=== PATIENT | female | born 1990 | race Caucasian/White ===

== ENCOUNTER → 2017-10-19 | Outpatient (CLI) | payer BC ==
[~2017-10-19] MED LIST: PRENTAB26 PO; TYL325X PO
== END | disposition home or self-care (01) ==
LOC: C.PAPS 07:51
PROVIDERS: ATTEND Obstetrics & Gynecology
DX: Z01.419 Encounter for gynecological examination (general) (routine) without abnormal findings (principal)

== ENCOUNTER 2019-10-16 15:58 | Inpatient (IN) ==
[2019-10-16] MEDS ORDERED: OXYTOCIN 30 UNITS/500 ML BAG IV PRN ×2 (16:56→22:32)
[2019-10-16] MEDS: LACTATED RINGER'S 1,000 ML IV PRN ×2 (17:14→18:11)
[2019-10-16] MEDS ORDERED: ePHEDrine sulfate 50 MG/ML AMP ONE (17:41)
[2019-10-16] MEDS ORDERED: fentaNYL citrate 100 MCG/2 ML VIAL ONE (17:41)
[2019-10-16] MEDS ORDERED: BUPIVACAINE 0.25% 30 ML VIAL ONE (17:42)
[2019-10-16] MEDS ORDERED: fentaNYL 2MCG/ML ROPIV 1.25MG/ML 100 ML BAG EPI ONE (17:42)
[2019-10-16 18:17] LABS: Hematocrit (blood only) 27.7 % (37-47); Mean Corpuscular Hemoglobin 25.9 pg (25-34); Mean Corpuscular Hgb Conc 32.5 g/dL (32-36); Mean Corpuscular Volume 79.6 fL (80-100); Mean Platelet Volume 12.9 fL (7.4-10.4); Platelet Count 188 K/uL (130-400); RDW Coefficient of Variation 15.4 % (11.5-14.5); RDW Standard Deviation 44.7 fL (36.4-46.3); Red Blood Count 3.48 M/uL (4.2-5.4); White Blood Count 13.67 K/uL (4.8-10.8)
[2019-10-16 18:18] LABS: Platelet Estimate Normal (Normal)
--- NOTE | 2019-10-16 18:27 | History & Physical Report ---
Date of Service October 16, 2019 Assessment & Plan (1) Normal labor: IUP in active labor with SPROM patient would like epidural analgesia anticipate vaginal Present on Admission?: Yes History of Present Illness Primary Care Provider: NO PCP Patient is a 29 yo white female EDC 10/24/19 who presents with SPROM at 1500 for copious clear fluid. contractions then started spontaneously/ has been uncomplicated. GBS- negative Blood type is O negative. Allergies Allergy/AdvReac Type Severity Reaction Status Date / Time No Known Drug Allergies Allergy Unknown n/a Verified 10/14/19 11:15 Home Medications Home Medications Medication Instructions Recorded Confirmed Type vit-iron fum-folic ac 1 tab PO DAILY 10/16/19 10/16/19 History [ Vitamin] Patient History Social History (Updated 05/09/19 @ 08:03 by Christa Davis MD) Preferred Language: Filipino Beliefs That Will Affect Care: None marital status: Current Living Situation: Spouse Other Information That Helps Us Care for You: No Feels Safe at Home: Yes Safety Concerns: Feels Safe At This Time Smoking Status: Never smoker Hx Alcohol Use: No Hx Substance Use: No Review of Systems All systems reviewed & are unremarkable except as noted in HPI & below Physical Exam Constitutional: WD/WN, vitals as above Respiratory: normal respiratory effort, lungs clear to auscultation Cardiovascular: RRR, no murmur, no edema Gastrointestinal (Abdomen): normal bowel sounds, soft, nontender, no hepatosplenomegaly Psychiatric: A+Ox3, euthymic affect Genitourinary: Manual OB Exam: + cervical dilation 4 cm, + cervical effacement 60%, + station -2 and + amniotic fluid clear OB Exam Monitor Tracing: + external FHT monitor used, + external uterine monitor used, + category II and + normal FHT variability mild to moderate variables with contractions. Results & Data Vital Signs (Past 12 Hours) Vital Signs Temp Pulse Resp BP 10/16/19 18:06 98.2 F 88 20 126/69 10/16/19 16:15 97.7 F 20 10/16/19 16:02 68 154/82 H Code Status & VTE Plan VTE Prophylaxis Plan VTE Prophylaxis will be ordered: No
[2019-10-16] MEDS ORDERED: NALOXONE HCL 0.4 MG/1 ML VIAL/CARP IV PRN (18:46)
[2019-10-16] MEDS ORDERED: fentaNYL 2MCG/ML ROPIV 1.25MG/ML 100 ML BAG EPI PRN (18:46)
[2019-10-16] MEDS ORDERED: NALOXONE HCL 1 MG in SODIUM CHLORIDE 0.9% 1000ML 1,000 ML IV PRN (18:46)
[2019-10-16] MEDS ORDERED: ONDANSETRON INJ 2 MG/ML 2 ML VIAL IV PRN (18:46)
[2019-10-16] MEDS ORDERED: ePHEDrine sulfate 50 MG/ML AMP IV PRN (18:46)
[2019-10-16] MEDS ORDERED: DiphenhydrAMINE HCL 50 MG/ML VIAL IV PRN (18:46)
[2019-10-16] MEDS ORDERED: NALBUPHINE HCL INJ 10 MG/ML AMP IV PRN (18:46)
--- NOTE | 2019-10-16 18:46 | Anesthesiology Consultation ---
Date of Service October 16, 2019 Assessment & Plan (1) Encounter for pre-operative examination: Chart Review Chart Review: Patient NOT seen in Pre Admission Testing and Acceptable Risk for Labor Epidural Consults Requested none ASA ASA2 Proposed Anesthesia Anesthesia Type: CSE Risk / Benefits Reviewed With: PT / POA / Parent / Guardian, Accepts Plan and Informed Consent Obtained History Height/Weight Height: 5 ft Weight: 65.317 kg Allergies Allergy/AdvReac Type Severity Reaction Status Date / Time No Known Drug Allergies Allergy Unknown n/a Verified 10/14/19 11:15 Medications Home Medications Medication Instructions Recorded Confirmed Last Taken vit-iron fum-folic ac 1 tab PO DAILY 10/16/19 10/16/19 10/16/19 08:00 [ Vitamin] Active Medications Generic Name Dose Route Start Last Admin Trade Name Freq PRN Reason Stop Dose Admin Lactated Ringer's 1,000 mls @ 125 mls/hr 10/16/19 16:56 10/16/19 18:11 Lr IV 10/18/19 16:55 125 mls/hr .Q8H PRN Administration L&D Protocol Protocol NPO Date Last Intake of Fluids: 10/16/19 Time Last Intake of Fluids: 17:00 Date Last Intake of Solids: 10/16/19 Time Last Intake of Solids: 08:00 Past Medical History Medical History History of breast pain (Resolved) History of varicella (Resolved) Exercise / Class Metabolic Activity II 4-5 Yardwork/Stairs/Walk up hill Past Family History Family History Mother Grandmother (Maternal) Breast cancer Past Surgical History Surgical History S/P wisdom tooth extraction Past Anesthesia History No Hx of Anesthesia Complications and No Family Hx of Anesthesia Complications History of PONV No Hx of PONV and No Hx of Motion Sickness Social History Smoking Status: Never smoker Hx Alcohol Use: No Hx Substance Use: No substance use type: does not use Physical Exam Vital Signs Last Vital Signs Temp 36.8 C 10/16/19 18:06 Pulse 95 H 10/16/19 18:39 Resp 20 10/16/19 18:06 BP 109/57 L 10/16/19 18:39 Pulse Ox 100 10/16/19 18:37 ENMT Mouth: no dentition abnormality Thyromental Distance: > or= 3.5 Finger Breadths Mallampati Class: II Neck normal visual inspection Respiratory normal respiratory effort Auscultation: lungs clear to auscultation bilaterally Cardiovascular Rate/Rhythm: regular rate and regular rhythm Psychiatric Orientation: alert Testing Laboratory Results 10/16/19 17:36
[2019-10-16] MEDS ORDERED: BENZOCAINE 20% AER SPR 82.5 GM CAN EXT PRN (22:32)
[2019-10-16] MEDS ORDERED: IBUPROFEN 600 MG TAB PO PRN (22:32)
[2019-10-16] MEDS ORDERED: ACETAMINOPHEN 325 MG TAB PO PRN (22:32)
[2019-10-16] MEDS ORDERED: HYDROCORTISONE ACETATE 25 MG SUPP PR PRN (22:32)
[2019-10-16] MEDS ORDERED: bisacodyL 10 MG SUPP PR PRN (22:32)
[2019-10-16] MEDS ORDERED: OXYCODONE/ACETAMINOPHEN 5mg/325mg TAB PO PRN (22:32)
[2019-10-16] MEDS ORDERED: SUPERCREAM 0.870% 15 GM JAR EXT PRN (22:32)
[2019-10-16] MEDS ORDERED: DIPHTHERIA/TETANUS/PERTUSSIS 0.5 ML SYR/VIAL IM ONE (22:32)
--- NOTE | 2019-10-17 00:42 | Delivery Summary ---
DATE OF OPERATION: 10/16/2019 The patient is a 29-year-old 3, para 2-0-0-2, white female who presented with spontaneous rupture of membranes for clear fluid at approximately 1500 hours today. She presented in active labor. She received effective epidural analgesia. She began pushing when the head was at +3 station. She pushed effectively over intact perineum for delivery of a viable female . The rest of infant delivered easily and was placed on the mother's abdomen for further attention and drying. There was vigorous crying and the infant was moving all 4 limbs. After 1 minute, the cord was clamped and cut. After cord blood was obtained, the placenta was expressed intact with a 3-vessel cord. There were no perineal lacerations, but a very superficial left labial abrasion present which was not bleeding and not repaired. BLOOD LOSS: 100 mL. Mother and infant were doing well post-delivery. I attest to the content of the Intraoperative Record and any orders documented therein. Any exception s are noted below.
--- NOTE | 2019-10-17 06:25 | Obstetrical Progress Note ---
Date of Service <Amaya Eduardo DO - Last Filed: 10/17/19 07:01> October 17, 2019 Assessment & Plan <Amaya Eduardo DO - Last Filed: 10/17/19 07:01> (1) Encounter for care and examination after delivery: 29 yo F PPD #1 following term vaginal delivery, doing well and without complaints this morning. - PPD #1, however delivered late last night. - Feels well, ambulating well, voiding well. - Will continue routine care. - Following d/c will have f/u in 6 weeks. Subjective <Amaya Eduardo DO - Last Filed: 10/17/19 07:01> Lali is a 29 yo female ; PPD # 1 following term vaginal delivery; doing well this AM; no abdominal cramping/pain; voiding well; no food since delivery, able to ambulate some within the room. Review of Systems Constitutional: denies fever, chills, sweats, headache Respiratory: denies SOB, difficulty breathing Cardiac: denies CP, chest palpitations, chest pressure Breast: denies breast pain : denies dysuria Physical Exam <Amaya Eduardo DO - Last Filed: 10/17/19 07:01> General: patient is alert and oriented, in NAD Cardiac: +S1/S2, no murmurs rubs or gallops Respiratory: lungs CTA b/l, anteriorly and posteriorly, no wheezes rales or rhonchi, no increased work of breathing, symmetric chest rise, no respiratory distress Abdomen: soft, NT, +bowel sounds Uterus: uterine fundus firm, palpable below the level of the umbilicus Lower Extremities: no LE edema or swelling, no deep calf pain, Rohit's sign negative b/l Results & Data <Amaya Eduardo DO - Last Filed: 10/17/19 07:01> Vital Signs (Past 12 Hours) Vital Signs Temp Pulse Pulse Resp BP BP Pulse Ox 10/17/19 04:30 37.2 C 91 H 16 117/70 94 10/17/19 01:00 37.2 C 94 H 18 128/81 97 10/17/19 00:32 100 H 126/76 10/17/19 00:30 37.0 C 100 H 18 126/76 10/17/19 00:28 100 H 128/73 10/17/19 00:13 117 H 130/60 10/17/19 00:02 105 H 129/58 L 10/17/19 00:00 105 H 18 129/58 L 10/16/19 23:52 103 H 118/63 10/16/19 23:42 101 H 124/64 10/16/19 23:32 100 H 130/67 10/16/19 23:30 100 H 130/67 10/16/19 23:15 109 H 18 115/71 10/16/19 23:12 109 H 115/71 10/16/19 23:02 90 120/60 10/16/19 23:00 18 10/16/19 22:52 99 H 120/64 10/16/19 22:45 18 10/16/19 22:43 105 H 117/67 10/16/19 22:32 37.2 C 116 H 18 114/72 10/16/19 22:27 117 H 99 10/16/19 22:26 121 H 128/59 L 10/16/19 22:22 122 H 100 10/16/19 22:17 124 H 99 10/16/19 22:12 114 H 100 10/16/19 22:11 115 H 123/78 10/16/19 22:07 114 H 100 10/16/19 22:02 131 H 98 10/16/19 22:01 18 10/16/19 21:57 118 H 98 10/16/19 21:56 123 H 105/55 L 10/16/19 21:52 119 H 97 10/16/19 21:47 123 H 97 10/16/19 21:42 124 H 99 10/16/19 21:41 120 H 116/55 L 10/16/19 21:37 115 H 98 10/16/19 21:32 121 H 98 10/16/19 21:31 18 10/16/19 21:27 117 H 121/57 L 98 10/16/19 21:22 119 H 98 10/16/19 21:17 120 H 97 10/16/19 21:12 115 H 98 10/16/19 21:11 111 H 103/57 L 10/16/19 21:07 115 H 97 10/16/19 21:02 115 H 100 10/16/19 21:00 36.8 C 18 10/16/19 20:57 110 H 98 10/16/19 20:56 122 H 109/58 L 10/16/19 20:52 109 H 98 10/16/19 20:47 112 H 97 10/16/19 20:42 114 H 114/61 98 10/16/19 20:37 107 H 99 10/16/19 20:32 112 H 98 10/16/19 20:30 18 10/16/19 20:27 116 H 98 10/16/19 20:26 111 H 108/63 10/16/19 20:22 109 H 98 10/16/19 20:17 118 H 99 10/16/19 20:12 114 H 100/59 L 100 10/16/19 20:07 117 H 100 10/16/19 20:02 110 H 100 10/16/19 19:57 111 H 100 10/16/19 19:56 118 H 102/62 10/16/19 19:52 105 H 100 10/16/19 19:47 104 H 100 10/16/19 19:45 18 10/16/19 19:43 101 H 113/62 10/16/19 19:42 101 H 100 10/16/19 19:37 111 H 100 10/16/19 19:32 103 H 100 10/16/19 19:30 18 10/16/19 19:27 117 H 100 10/16/19 19:25 134 H 117/78 10/16/19 19:22 112 H 100 10/16/19 19:20 18 10/16/19 19:19 101 H 114/59 L 10/16/19 19:17 86 100 10/16/19 19:14 95 H 106/55 L 10/16/19 19:12 83 100 10/16/19 19:11 36.9 C 18 10/16/19 19:10 89 103/51 L 10/16/19 19:07 86 100 10/16/19 19:05 82 101/55 L 10/16/19 19:02 78 100 10/16/19 19:01 88 106/56 L 10/16/19 18:57 85 100 10/16/19 18:54 82 131/76 10/16/19 18:52 100 H 100 10/16/19 18:50 93 H 97/49 L 10/16/19 18:47 84 100 10/16/19 18:45 86 104/51 L 10/16/19 18:42 85 100 10/16/19 18:39 95 H 109/57 L 10/16/19 18:37 91 H 110/59 L 100 10/16/19 18:35 100 H 116/59 L 10/16/19 18:33 92 H 119/59 L 10/16/19 18:32 78 100 10/16/19 18:31 88 119/62 10/16/19 18:29 85 120/63 10/16/19 18:27 82 120/62 100 Laboratory Results Laboratory Results - last 24 hr 10/16/19 10/17/19 10/17/19 17:36 05:42 05:42 WBC 13.67 H 18.39 H RBC 3.48 L 3.37 L Hgb 9.0 L 8.5 L Hct 27.7 L 26.4 L MCV 79.6 L 78.3 L MCH 25.9 25.2 MCHC 32.5 32.2 RDW Std Deviation 44.7 44.5 RDW Coeff of Mario 15.4 H 15.5 H Plt Count 188 175 MPV 12.9 H Platelet Estimate Normal Normal Blood Type Pending Antibody Screen Pending Screen Pending Medications Administered Current Medications Acetaminophen (Tylenol) 650 mg PO Q6H PRN PRN Reason: Pain/YIP/Fever Stop: 11/15/19 22:31 Benzocaine (Dermoplast Pain Relieving [place]) 1 appln EXT PRN PRN PRN Reason: Perineal Discomfort Stop: 11/15/19 22:31 Bisacodyl (Dulcolax) 5 mg PO 1999 [facility] Stop: 10/17/19 20:01 Bisacodyl (Dulcolax) [address] DAILY PRN PRN Reason: No BM on 2nd post- day Stop: 11/15/19 22:31 Cocaine HCl (Supercream 0.870%) 1 gm EXT BID PRN PRN Reason: Hemorrhoidal Inflammation Stop: 10/30/19 22:31 Diphenhydramine HCl (Benadryl) 25 mg IV Q6H PRN PRN Reason: Itching Stop: 10/17/19 18:45 Docusate Sodium (Colace) 100 mg PO DAILY@ [facility] Stop: 11/16/19 07:59 Ephedrine Sulfate (Ephedrine Sulfate) 10 mg IV Q5M PRN PRN Reason: Hypotension Stop: 10/17/19 18:45 Last Admin: 10/16/19 18:53 Dose: 10 mg Documented by: Hydrocortisone (Anusol Hc) [address] BID PRN PRN Reason: Hemorrhoidal Inflammation Stop: 11/15/19 22:31 Lactated Ringer's (Lr) 1,000 mls @ 125 mls/hr IV .Q8H PRN; Protocol PRN Reason: L&D Protocol Stop: 10/18/19 16:55 Last Infusion: 10/17/19 01:21 Dose: Infused Documented by: Oxytocin (Pitocin) 30 units in 500 mls @ 333.333 mls/hr IV .Q1H30M PRN; Protocol PRN Reason: Bleeding Control Stop: 11/15/19 16:55 Last Admin: 10/16/19 22:34 Dose: 20 units/hr, 333.3 mls/hr Documented by: Naloxone HCl 1 mg/ Sodium (Chloride) 1,002.5 mls @ 50 mls/hr IV .Q20H3M PRN PRN Reason: itching or nausea Stop: 10/17/19 18:45 Oxytocin (Pitocin) 30 units in 500 mls @ 333.333 mls/hr IV .Q1H30M PRN; Protocol PRN Reason: Bleeding Control Stop: 11/15/19 22:31 Ibuprofen (Motrin) 600 mg PO Q4H PRN PRN Reason: Pain/YIP/Cramping/Fever Stop: 11/15/19 22:31 Nalbuphine HCl (Nubain) 5 mg IV Q10M PRN PRN Reason: itching or nausea Stop: 10/17/19 18:45 Naloxone HCl (Narcan) 0.1 mg IV UD PRN PRN Reason: Respiratory Depression Stop: 10/17/19 18:45 Ondansetron HCl (Zofran) 4 mg IV Q6H PRN PRN Reason: Nausea And Vomiting Stop: 10/17/19 18:45 Oxycodone/Acetaminophen (Percocet 5mg/325mg) 1 tab PO Q4H PRN PRN Reason: Pain not relieved by... Stop: 10/30/19 22:31 Prenat Multivit/[place]/Iron/Folic Ac ( Vitamin) 1 tab PO DAILY@08 ABI Stop: 11/16/19 07:59 Ropivacaine (Epidural (L&D)) 100 ml EPI PRN PRN; Protocol PRN Reason: Pain R/T Labor Stop: 10/17/19 18:45 <Katrin Jauregui MD, FACOG - Last Filed: 10/17/19 07:27> Co-Signing Physician Notes Resident Physician Supervision Note: I interviewed and examined the patient. Discussed with Dr. Shashi Eduardo and agree with findings and plan as documented in the note. Any exceptions or clarifications are listed here: [None] Documented By: Katrin Jauregui MD, FACOG Resident Activity Tracking <Amaya Eduardo DO - Last Filed: 10/17/19 07:01> Resident Involvement: Resident Care Provided Care Provided: OB Delivery
[2019-10-17 06:52] LABS: Hematocrit (blood only) 26.4 % (37-47); Hemoglobin 8.5 g/dL (12.0-16.0); Mean Corpuscular Hemoglobin 25.2 pg (25-34); Mean Corpuscular Hgb Conc 32.2 g/dL (32-36); Mean Corpuscular Volume 78.3 fL (80-100); Platelet Count 175 K/uL (130-400); RDW Coefficient of Variation 15.5 % (11.5-14.5); RDW Standard Deviation 44.5 fL (36.4-46.3); Red Blood Count 3.37 M/uL (4.2-5.4); White Blood Count 18.39 K/uL (4.8-10.8)
[2019-10-17 06:53] LABS: Platelet Estimate Normal (Normal)
[2019-10-17] MEDS: PRENATAL VITAMIN 1 TAB PO SCH (08:07)
[2019-10-17] MEDS: DOCUSATE SODIUM 100 MG CAP PO SCH ×2 (08:07→20:34)
--- NOTE | 2019-10-17 08:48 | Anesthesia Procedure Note ---
Date of Service October 17, 2019 Anesthesia Post Epidural Note Vital Signs Vital Signs: Temp Pulse Resp BP Pulse Ox 37.2 C 91 H 16 117/70 94 10/17/19 04:30 10/17/19 04:30 10/17/19 04:30 10/17/19 04:30 10/17/19 04:30 Pain Intensity Perineal: Pain Intensity: 2 Notes Mental Status: alert / awake / arousable and participated in evaluation Nausea / Vomiting: adequately controlled Pain: adequately controlled Airway Patency, RR, SpO2: stable & adequate BP & HR: stable & adequate Hydration State: stable & adequate Neuraxial Anesthesia: was administered and sensory block is resolving Anesthetic Complications: no major complications apparent and Pt Satisfied with anesthetic care Epidural: Removed without complications and With tip intact
[2019-10-17] MEDS ORDERED: bisacodyL 5 MG TABEC PO SCH (20:00)
--- NOTE | 2019-10-18 06:19 | Obstetrical Progress Note ---
Date of Service <Amaya Pereraneftali - Last Filed: 10/18/19 07:50> October 18, 2019 Assessment & Plan <Amaya Eduardo - Last Filed: 10/18/19 07:50> (1) Encounter for care and examination after delivery: 29 yo F PPD #2 following term vaginal delivery, doing well and without complaints this morning. - PPD #2. - Feels well, ambulating well, voiding well. - For discharge today. - Following d/c will have f/u in 6 weeks. - Went over discharge instructions and answered all patient questions. Subjective <Amaya Pereraneftali - Last Filed: 10/18/19 07:50> Lali is a 29 yo female ; PPD # 2 following term vaginal delivery; doing well this AM; no abdominal cramping/pain; voiding well; no food since delivery, able to ambulate some within the room. Review of Systems Constitutional: denies fever, chills, sweats, headache Respiratory: denies SOB, difficulty breathing Cardiac: denies CP, chest palpitations, chest pressure Breast: denies breast pain : denies dysuria Physical Exam <Amaya Jayce, DO - Last Filed: 10/18/19 07:50> General: patient is alert and oriented, in NAD Cardiac: +S1/S2, no murmurs rubs or gallops Respiratory: lungs CTA b/l, anteriorly and posteriorly, no wheezes rales or rhonchi, no increased work of breathing, symmetric chest rise, no respiratory distress Abdomen: soft, NT, +bowel sounds Uterus: uterine fundus firm, palpable below the level of the umbilicus Lower Extremities: no LE edema or swelling, no deep calf pain, Rohit's sign negative b/l Results & Data <Amaya Eduardo - Last Filed: 10/18/19 07:50> Vital Signs (Past 12 Hours) Vital Signs Temp Pulse Resp BP 10/17/19 23:15 36.6 C 71 18 125/83 10/17/19 19:45 36.8 C 77 18 117/74 <Latricia Palencia, DO - Last Filed: 10/18/19 08:29> Co-Signing Physician Notes Resident Physician Supervision Note: I interviewed and examined the patient. Discussed with Dr. Whitley and agree with findings and plan as documented in the note. Any exceptions or clarifications are listed here: PPD#2 doing well. DC home today, instructions reviewed. Documented By: Latricia Palencia DO Resident Activity Tracking <Amaya Eduardo DO - Last Filed: 10/18/19 07:50> Resident Involvement: Resident Care Provided Care Provided: OB Delivery
[2019-10-18 07:31] LABS: Hematocrit (blood only) 29.4 % (37-47); Hemoglobin 9.4 g/dL (12.0-16.0)
[2019-10-18] MEDS: PRENATAL VITAMIN 1 TAB PO SCH (10:04)
[2019-10-18] MEDS: DOCUSATE SODIUM 100 MG CAP PO SCH (10:07)
== END 2019-10-18 10:10 | disposition home or self-care (01) | DRG 807 ==
LOC: OPB 15:58 → 4S1 16:01 → 4S2 10-17 01:04